=== PATIENT | female | born 1980 | race Caucasian/White ===

== ENCOUNTER → 2017-09-15 | Outpatient (REF) | payer BC ==
[2017-09-15 20:10] LABS: FOLLICLE STIMULATING HORMONE 75.9 mIU/mL; LUTEINIZING HORMONE 35.9 mIU/mL
== END ==
LOC: M LAB REF 18:10
PROVIDERS: ATTEND Internal Medicine
DX: E28.2 Polycystic ovarian syndrome (principal)

== ENCOUNTER → 2017-09-27 | Outpatient (REF) | payer BC ==
[2017-09-27 14:28] LABS: CORTISOL AM 15.6 UG/DL (4.3-22.4)
[2017-09-27 14:57] LABS: CA 125 2.8 U/ML (<30.2)
== END ==
LOC: M LAB REF 13:38
PROVIDERS: ATTEND Internal Medicine
DX: L68.0 Hirsutism (principal); N83.292 Other ovarian cyst, left side; R63.5 Abnormal weight gain

== ENCOUNTER → 2024-06-21 | Outpatient (REF) | payer BC | LOC: M LAB REF 13:32 | PROVIDERS: ATTEND Internal Medicine | DX: M25.50 Pain in unspecified joint (principal) ==

== ENCOUNTER → 2024-11-19 | Outpatient (CLI) | payer BC | LOC: M WHC 07:01 | PROVIDERS: ATTEND Internal Medicine | DX: N83.201 Unspecified ovarian cyst, right side (principal); E04.9 Nontoxic goiter, unspecified ==

== ENCOUNTER → 2024-12-18 | Outpatient (REF) | payer BC | LOC: M LAB REF 12:34 | PROVIDERS: ATTEND Internal Medicine | DX: C68.0 Malignant neoplasm of urethra (principal) ==